=== PATIENT | male | born 1990 | race Caucasian/White ===

== ENCOUNTER 2020-01-03 20:15 | Emergency (ER) | payer OTHER ==
[~2020-01-03] VITALS: Ht 172.7 cm; Wt 98.9 kg
[2020-01-03] MEDS ORDERED: DICLOFENAC SODI75 MG PO (21:39)
== END 2020-01-03 21:46 | disposition home or self-care (01) ==
LOC: ER 20:15
DX: M54.5 Low back pain (principal)

== ENCOUNTER 2020-02-06 18:44 | Emergency (ER) | payer OTHER ==
[~2020-02-06] VITALS: Ht 172.7 cm; Wt 98.9 kg
[~2020-02-06 18:44] MED LIST: DICLOFENAC SODI75 MG PO
== END 2020-02-06 19:51 | disposition home or self-care (01) ==
LOC: ER 18:44
DX: M51.27 Other intervertebral disc displacement, lumbosacral region (principal)